=== PATIENT | female | born 1980 | race Two or more races ===

== ENCOUNTER 2016-06-02 12:06 | Emergency (ER) | payer OTHER ==
[2016-06-02] MEDS ORDERED: DIPHENHYDRAMINE HCL 50 MG/1 ML VIAL ONE (12:48)
[2016-06-02] MEDS ORDERED: METOCLOPRAMIDE HCL 5 MG/ML 2ML VIAL ONE (12:48)
[2016-06-02] MEDS ORDERED: KETOROLAC TROMETHAMINE 30 MG/ML 1 ML VIAL ONE (12:48)
== END 2016-06-02 13:35 | disposition home or self-care (01) ==
LOC: ED 12:06
DX: R51 Headache (principal); R11.2 Nausea with vomiting, unspecified
CPT/HCPCS: 99282; 96372 ×3; 99283; J1200; J2765; J1885